=== PATIENT | male | born 1950 | race Caucasian/White ===

== ENCOUNTER → 2016-05-27 | Outpatient (CLI) | payer OTHER ==
[~2016-05-27] VITALS: Ht 185.4 cm; Wt 113.0 kg
[~2016-05-27] MED LIST: ADDERALL 10 MG10 MG PO; ALEVE220 M1 PO; AMBIEN 10 MG TA10 MG PO; ANDROGEL5 GM TD; APAP500 PO; ASPIRIN325 PO; ASPIRIN81 M2 PO; ATORVASTATIN CA80 MG PO; COREG PO; COREG6.25 MG PO; COUMADIN 2.5MG2.5 M1 PO; COUMADIN 5 MG TA5 M1 PO; DEPAKOTE ER250 MG PO; DESYREL50 MG PO; DHEA50 MG PO; FENTANYL PA25 MCG/HR TP; FENTANYL PA50 MCG/HR TP; GLUCOTROL PO; GLUCOTROL5 MG PO; HYDROCODON-ACE1 EAC5 PO; HYDROCODON-ACE1 EAC7 PO; IBUPROFEN 800800 M1 PO; JANUVIA100 MG PO; K-DUR 20 MEQ T20 MEQ PO; LANTUS SUBQ; LASIX 80 MG TAB80 M1 PO; LIPITOR 10 MG10 M1 PO; LIPITOR 40 MG T40 M1 PO; LIPITOR40 MG PO; LISINOPRIL10 MG PO; LISINOPRIL5 MG PO; LOPID600 MG PO; METHADONE HCL 110 M1 PO; METHADONE HCL5 MG PO; MYSOLINE50 MG PO; NORCO 10-325 T1 EACH PO; OXYCODONE-ACET1 EACH PO; PACERONE 200 M200 M1 PO; PERCOCET 5-3251 EACH PO; POTASSIUM PO; PRILOSEC 20 MG20 MG PO; PROPRANOLOL 1010 MG PO; REQUIP3 MG PO; RESTORIL30 MG PO; RISPERDAL 1 MG T1 MG PO; SERTRALINE HCL100 MG PO; SIMVASTATIN80 MG PO; TRAZODONE HCL100 MG; TRAZODONE HCL50 MG PO; WELLBUTRIN SR150 MG PO; XARELTO10 MG PO; XARELTO15 MG PO; ZOLOFT100 MG PO
--- NOTE | ~2016-05-27 | HPC ---
[facility] [place] [address] PAIN MANAGEMENT CONSULTATION Name: MONY CASTILLO Room #: REG Orin MyersBrittanyFrancisco J.#: [id number] Admission: 05/27/16 Attend Phys: Bert Fair MD Discharge: Date of : 46 Report #: [id number] THIS REPORT FOR: //name// CC: Bert BROWN DATE OF SERVICE: 05/27/2016 Followup visit for chronic intractable pain. I am seeing the patient today for the first time since January. He has been in and out of the hospital. He has also been suffering with some gait instability and weakness. He complains of ongoing chronic pain across his low back, above the beltline. It radiates down the right leg in a radicular distribution. He is currently on Coumadin with an elevated INR. He is not a candidate for injection therapy today. MEDICATIONS: Methadone 10 mg b.i.d., hydrocodone 10/325 one tablet q. 8 hours as needed, Coumadin 5 mg daily, trazodone 50 mg daily, carvedilol 6.25 mg, Adderall 10 mg daily, Risperdal 1 mg, lisinopril, glipizide, amiodarone, atorvastatin, Zolpidem, Depakote, Prilosec and Lasix. PHYSICAL EXAMINATION: VITAL SIGNS: BMI is 32.9. Blood pressure is 106/55, heart rate 73 and respirations 16. GENERAL: He looks pale and gaunt. NEUROLOGIC: He is able to move from sitting to standing position, walks with a broad-based gait. Lcorcf-sy-cuw says that he looks much better than he did just weeks ago from when leaving the hospital. He has tenderness across his low back with limited range of motion. Straight leg raising reproduces radicular pain. IMPRESSION: 1. Chronic low back pain with radiculopathy. 2. Posttraumatic stress disorder. 3. Management of high-risk medication. PLAN: We will continue methadone at 10 mg, but we will reduce the dose to once a day or break the tablet and take 5 mg in the morning and evening. We are trying to keep him at the lowest effective dose. Hydrocodone 10/325, we will still provide 1-2 times daily for breakthrough pain. Importance of safeguarding medication under the terms of our opioid agreement established in 1997 was reviewed. This closely follows the CDC guidelines and we are under his CDC guideline 90 mg morphine equivalent dosing. [address] [address] PAIN MANAGEMENT CONSULTATION Name: MONY CASTILLO Room #: REG CLOrin Elba#: [id number] Admission: 05/27/16 Attend Phys: Bert Fair MD Discharge: Date of : 46 Report #: [id number] Followup visit in 3 months. By: [id number] Bert Fair MD /nt
[2016-05-27 14:34] VITALS: BP 106/55
== END | disposition home or self-care (01) ==
LOC: PAIN 04-29 07:27
DX: M54.16 Radiculopathy, lumbar region (principal); G89.29 Other chronic pain; F43.10 Post-traumatic stress disorder, unspecified; F11.20 Opioid dependence, uncomplicated; Z87.891 Personal history of nicotine dependence; Z98.42 Cataract extraction status, left eye; Z98.41 Cataract extraction status, right eye; Z96.1 Presence of intraocular lens

== ENCOUNTER → 2016-08-19 | Outpatient (CLI) | payer OTHER ==
[~2016-08-19] VITALS: Ht 185.4 cm; Wt 109.6 kg
--- NOTE | ~2016-08-19 | HPC ---
[facility] [place] [address] PAIN MANAGEMENT CONSULTATION Name: MONY CASTILLO Room #: REG CARIDAD MyersBrittanyFrancisco JBrittany#: [id number] Admission: 08/19/16 Attend Phys: Bert Fair MD Discharge: Date of : 46 Report #: [id number] THIS REPORT FOR: //name// CC: Bert BROWN DATE OF SERVICE: 08/19/2016 Followup visit for management of chronic intractable pain. The patient looks better today. He has lost a fair amount of weight and kept that off. He is moving better, having undergone physical therapy where they are working on getting up and down out of a chair every day and walking short distances. With this, I think he is improved, both from a cardiovascular standpoint and also from a pain standpoint. ____ his affect seem improved as well. He scores his pain as 6/10 across his low back and into his right leg. He is on a moderately low dose of methadone 10 mg daily, taken once in the morning. ____ [place] 10/325 anywhere from 2-3 tablets a day, I provide him with 75 per month under terms of our opioid agreement. He has been on schedule for all medication. He denies any significant side effects. ____ his , Penny, with him today who his corroboration of how well he is doing with medication. IMPRESSION: 1. Chronic low back pain. 2. Management of high risk medication. 3. Posttraumatic stress disorder. PLAN: I have renewed his methadone 10 mg once daily and hydrocodone 10/325 two to three tablets daily as needed for breakthrough pain under terms of our agreement. He will follow up in 3 months. By: [id number] Bert Fair MD /nt
[2016-08-19 14:23] VITALS: BP 97/50
== END | disposition home or self-care (01) ==
LOC: PAIN 06:58
DX: M54.5 Low back pain (principal); G89.29 Other chronic pain; F11.20 Opioid dependence, uncomplicated; F43.10 Post-traumatic stress disorder, unspecified; Z98.42 Cataract extraction status, left eye; Z98.41 Cataract extraction status, right eye; Z96.1 Presence of intraocular lens; Z87.891 Personal history of nicotine dependence; Z98.890 Other specified postprocedural states; Z88.8 Allergy status to other drugs, medicaments and biological substances; Z79.82 Long term (current) use of aspirin; Z79.899 Other long term (current) drug therapy

== ENCOUNTER → 2016-12-05 | Outpatient (CLI) | payer OTHER ==
[~2016-12-05] VITALS: Ht 182.9 cm; Wt 106.8 kg
[~2016-12-05] MED LIST changes: +LAMICTAL100 MG PO; +METFORMIN HCL500 MG PO; +VITAMIN D1000 UNI1 PO
--- NOTE | ~2016-12-05 | HPC ---
[facility] [place] [address] PAIN MANAGEMENT CONSULTATION Name: MONY CASTILLO Room #: REG CARIDAD Elba#: [id number] Admission: 12/05/16 Attend Phys: Bert Fair MD Discharge: Date of : 46 Report #: [id number] THIS REPORT FOR: //name// CC: Bert BROWN DATE OF SERVICE: 12/05/2016 REASON FOR VISIT: Followup visit for chronic pain. The patient is here today to discuss his ongoing back pain. He has back pain in the low back across the lumbosacral segment, radiates down into the right lower extremity. He is having worsening of his foot drop, suggesting L5 neural compression. We have previously treated him with intermittent epidural injections, which provided some relief. We discussed that briefly today. He has a number of issues including history of coronary artery disease and has stents. He has a biventricular pacemaker. He has congestive heart failure. He suffers also from diverticulitis and diffuse osteoarthritis. He has dealt with longstanding PTSD, which is documented in this record. He is insulin-dependent diabetic. Steroid injections have worsened his diabetes at times. He has cholecystectomy scheduled for Friday due to right upper abdominal quadrant pain and he has cholelithiasis that have been identified with ultrasound. He is feeling generally weak and is worried about his surgery. PHYSICAL EXAMINATION: He is 6 feet tall, 235 pounds. Blood pressure is 86/58, which is typical for him. Heart rate is 95. Pain score is 8. He is able to easily move from sitting to standing position, but complains of pain on ambulation. He has weakness in his right lower extremity which also shows an evident right foot drop. IMPRESSION: 1. Chronic intractable pain, low back pain with radiculopathy. 2. Post-traumatic stress disorder. 3. Coronary artery disease. 4. Insulin-dependent diabetes. 5. Management of high risk medication. PLAN: I renewed his medication under terms of our agreement. He is on methadone 10 mg t.i.d. and hydrocodone 10/325 one to three tablets daily for breakthrough pain. If we calculate morphine at 4 mg to 1 mg of morphine, then he is above the CDC guidelines. He is doing well without significant side effects and this medication has made a big difference in allowing him to be reasonably functional. I am going to go ahead and continue him with this dose, but will monitor him closely. Multiple drug screens have been performed. The [address] [address] PAIN MANAGEMENT CONSULTATION Name: MONY CASTILLO Room #: REG CLI JonnathanBrittany#: [id number] Admission: 12/05/16 Attend Phys: Bert Fair MD Discharge: Date of : 46 Report #: [id number] CDC guidelines were reviewed today with the patient and his before discharge. Total time spent with the patient 25 minutes. By: 1228 10 Bert Fair MD /lidia
[2016-12-05 13:11] VITALS: BP 86/58
== END | disposition home or self-care (01) ==
LOC: PAIN 11-21 11:39
DX: M54.16 Radiculopathy, lumbar region (principal); G89.29 Other chronic pain; E11.9 Type 2 diabetes mellitus without complications; I25.10 Atherosclerotic heart disease of native coronary artery without angina pectoris; I50.9 Heart failure, unspecified; F43.10 Post-traumatic stress disorder, unspecified; M19.90 Unspecified osteoarthritis, unspecified site; Z79.4 Long term (current) use of insulin; Z79.891 Long term (current) use of opiate analgesic; Z95.0 Presence of cardiac pacemaker; Z79.01 Long term (current) use of anticoagulants; Z98.41 Cataract extraction status, right eye; Z98.42 Cataract extraction status, left eye; Z87.891 Personal history of nicotine dependence; Z88.8 Allergy status to other drugs, medicaments and biological substances; Z88.6 Allergy status to analgesic agent; Z79.82 Long term (current) use of aspirin; Z79.899 Other long term (current) drug therapy

== ENCOUNTER → 2017-03-10 | Outpatient (CLI) | payer OTHER ==
[~2017-03-10] VITALS: Ht 182.9 cm; Wt 113.9 kg
--- NOTE | ~2017-03-10 | HPC ---
[facility] [place] [address] PAIN MANAGEMENT CONSULTATION Name: MONY CASTILLO Room #: REG Orin Jonnathan.#: [id number] Admission: 03/10/17 Attend Phys: Julian Serra, DO Discharge: Date of : 46 Report #: [id number] THIS REPORT FOR: //name// CC: DELMER Serra The patient is a 66-year-old gentleman, typically treated by Dr. Bert Fair for ongoing axial back pain, lumbar radiculopathy, history of posttraumatic stress disorder, comorbidities include coronary artery disease and insulin-dependent diabetes. He was last seen in the pain clinic 12/05/2016, continued on baseline medications including methadone 10 mg 1 per day, hydrocodone 10/325 one tablet 2-3 times a day. This equates to roughly 65 mEq of morphine daily. The patient returns to pain clinic today noting medications generally provide sufficient analgesia to participate in the activities of daily living, rates the pain about 6 on a VAS. Describes of chronic intermittent pain primarily back, right buttock, and leg to the knee. The patient states he does exercises daily. He does a sit to stand from a chair without using his arms 25 times once or twice a day. He states he walks fairly regularly about 3-5 minutes throughout the day. He had been more active when the weather was warmer. He tells me his blood sugar is under adequate control, last hemoglobin A1c was 6.3. PHYSICAL EXAMINATION: Shows a 66-year-old gentleman, BMI is 34 kg/m2. Vital signs are stable as noted in the EMR. He has a little bit of twitching in his right upper extremity (nervous Tic?). Rises from the chair, has a mildly ataxic gait. Tender over the right SI. Positive straight leg raise on the right side. Lower extremity strength is diminished on the right to all muscle groups tested about 3/5 versus 4/5 on the left. Incidentally noted, he has a trigger ring finger on the right hand. He is otherwise alert and oriented, judged to be a reasonable historian. Again, comorbidities include insulin-dependent diabetes and coronary artery disease, history of CO with multiple stents and a biventricular pacer, history of CHF. We reviewed the fact that opiate medications are being used to provide analgesia adequate to support activities of daily living, not attempting to achieve a specific pain score on the 0-10 Visual Analog Scale. The current opiate medications are providing sufficient analgesia to allow the patient to participate in activities of daily living. The patient is not exhibiting any aberrant behavior suggestive of drug diversion. The patient is not having any adverse reactions to medications. The patient is not suffering from daytime somnolence or mental acuity changes. The patient is managing opiate-induced constipation with appropriate vspw-xmi[place] [address] PAIN MANAGEMENT CONSULTATION Name: ANNAMONYKAILA FOOTE Room #: REG CARIDAD Arreola#: [id number] Admission: 03/10/17 Attend Phys: Julian Serra DO Discharge: Date of : 46 Report #: [id number] considerations. The patient was counseled on concern for caution with operating a motor vehicle while using opiate medications. A physical exam was performed and the patient's functional status was evaluated. All patients with back pain were advised against the bed rest greater than 4 days and were advised to return to normal activities. Pain score assessment was noted and the treatment plan was reviewed with the patient. All current medications, both prescribed and OTC were reviewed and reconciled on the electronic medical record. Tobacco screening was accomplished and smoking cessation was advised when indicated. BMI was noted and diet/exercise modification was recommended for all patients following outside normal parameters. I reviewed with the patient today their responsibilities to safeguard prescription medications, reviewed their responsibility to utilize medications only as prescribed by the physician. They are to seek and receive pain medications only from 1 physician group ( [facility]). They are to use 1 pharmacy and keep the clinic informed if they change pharmacies. Their responsibilities include making followup visits in a timely fashion and to avoid abrupt discontinuation of medication usage. Their responsibilities further include bringing their medications (bottles from the pharmacy with residual pills) to the visit for possible confirmation of pill counts and the patient understands it is their responsibility to submit to random drug screens to ensure both that the medications prescribed are present, and that no other controlled substances are present. All prescriptions provided today were generated electronically. ASSESSMENT: 1. Symptomatic lumbar radiculopathy, axial back pain in a gentleman requiring high risk complex medication management well under the CDC recommended standards at roughly 65 morphine equivalence a day (10 mg of methadone once daily equating to about 40 mg of morphine, averaging 2-1/2 hydrocodone 10/325 tablets a day for another 25 mEq of morphine). The patient was decreased from methadone 10 mg b.i.d. to once a day back in July 2015, and has been stable on that since. On reviewing the chart, it appears that there has not been an opiate screen in the past year, we did take the liberty of getting a buccal swab today. It should be positive for morphine and hydrocodone. 2. Symptomatic lumbar radiculopathy, axial back pain requiring high risk complex medication management, comorbidities include posttraumatic stress disorder, coronary artery disease, and insulin-dependent diabetes. RECOMMENDATION: Continue baseline medication unchanged, methadone 10 mg once a day, hydrocodone 10/325, limit 75 tablets for 30 days. I have taken the liberty of writing for 3 months of current medication. [facility] [address] [place] [address] PAIN MANAGEMENT CONSULTATION Name: MONY CASITLLO QAMAR Room #: REG CLI Jonnathan.#: [id number] Admission: 03/10/17 Attend Phys: Julian Serra DO Discharge: Date of : 46 Report #: [id number] I spent approximately 25 minutes with the patient and his today reviewing medical record, physical exam, current medical concerns. The patient was discharged in good and stable condition. <ELECTRONICALLY SIGNED> By: Julian Serra DO 03/12/17 0816 1541 1857 Julian Serra DO /nt
[2017-03-10 12:43] VITALS: BP 116/69
== END ==
LOC: PAIN 03-06 13:27
DX: M54.16 Radiculopathy, lumbar region (principal); I25.10 Atherosclerotic heart disease of native coronary artery without angina pectoris; E11.9 Type 2 diabetes mellitus without complications

== ENCOUNTER → 2017-09-29 | Outpatient (CLI) | payer OTHER ==
[~2017-09-29] VITALS: Ht 182.9 cm; Wt 108.3 kg
--- NOTE | ~2017-09-29 | HPC ---
[facility] [address] [address] PAIN MANAGEMENT CONSULTATION Name: MONY CASTILLO Room #: REG Orin Jonnathan.#: [id number] Admission: 09/29/17 Attend Phys: Bert Fair MD Discharge: Date of : 46 Report #: [id number] THIS REPORT FOR: //name// CC: Physician staff Bert BROWN DATE OF SERVICE: 09/29/2017 SUBJECTIVE: Followup visit for management of high risk medications for intractable pain. The patient returns to pain clinic today in followup for back pain with radiculopathy. He is doing better. We have tapered his medicines somewhat. He is complaining once again of pain mostly in the low back, but also radiating pain behind the right knee, which is a constant complaint. Pain score is an 8/10. This is fairly consistent number, although his activities would delay that. He and his are planning a trip possibly to [place] later in the fall, so he is getting out and doing some things important, part of pain management, of course is activity driven. Without medication, both his and the patient report that he would be much more limited in the house. He is able to get out, go to the store and do other things. Does not appear to be a fall risk. He needs to be cautious. He is on Coumadin. No history of hypertension. His opioid agreement has been signed and reviewed recently. A buccal drug screen was performed on 03/12/2017 was appropriate for all medications provided through our clinic. He struggles with some osteoarthritis of the major joints, but overall is doing okay. Other comorbidities include coronary artery disease, congestive heart failure, insulin-dependent diabetes and post-laminectomy with fusion syndrome. IMPRESSION: 1. Chronic low back pain with radiculopathy. 2. Posttraumatic stress disorder described elsewhere throughout this record. 3. Coronary artery disease. 4. Insulin-dependent diabetes. 5. Management of high risk medications under terms of written opioid agreement. Medications were renewed with precautions about safeguarding. Current daily dose is methadone 10 mg once daily, [place] 10/325 2-3 times daily for breakthrough pain with a total of 75 tablets allowed per month. [facility] [address] [place] [address] PAIN MANAGEMENT CONSULTATION Name: ANNAMONY QAMAR Room #: REG CL Elba#: [id number] Admission: 09/29/17 Attend Phys: Bert Fair MD Discharge: Date of : 46 Report #: [id number] Followup visit planned in 3 months. By: [id number] Bret Fair MD /nt
[2017-09-29 14:31] VITALS: BP 95/65
== END ==
LOC: PAIN 06:57
DX: M54.16 Radiculopathy, lumbar region (principal); I25.10 Atherosclerotic heart disease of native coronary artery without angina pectoris; E11.9 Type 2 diabetes mellitus without complications; G89.4 Chronic pain syndrome; Z79.891 Long term (current) use of opiate analgesic; Z79.899 Other long term (current) drug therapy

== ENCOUNTER → 2017-12-29 | Outpatient (CLI) | payer OTHER ==
[~2017-12-29] VITALS: Ht 182.9 cm; Wt 104.3 kg
--- NOTE | ~2017-12-29 | HPC ---
[facility] [place] [address] PAIN MANAGEMENT CONSULTATION Name: ANNAMONY QAMAR Room #: REG Orin Arreola#: [id number] Admission: 12/29/17 Attend Phys: Danielle Kenney Discharge: Date of : 46 Report #: [id number] THIS REPORT FOR: //name// CC: Danielle Kenney Physician staff DELMER BROWN DATE OF SERVICE: 12/29/2017 CHIEF COMPLAINT: The patient comes today for follow up for his pain management for his back pain with radiculopathy. HISTORY OF PRESENT ILLNESS: The patient returns today for followup for his back pain. He is in a wheelchair today and he tells us that he has had 2 falls, first one being on 11/09/2017, had a subarachnoid bleed because the patient is on Coumadin and then went back on 12/12/[address] and noticed at that time, he had a subdural hematoma and mini stroke. The patient is no longer on Coumadin, has been doing home PT and home OT. He was at the hospital for at least a week in [place]. He tells me during his first fall he also hurt his left shoulder and that continues to be bothersome as well as the lower back. He did have a headache up until about a week ago and finally that has resolved. The patient tells me that he had had some word searching after his mini stroke, but that has slowly been getting better. He complains of pain of 6/10 today. Does have some weakness in his lower extremities and is wearing a gait belt. He tells me that the medication that he takes is very helpful as well as sitting. He tells me he has been taking hydrocodone up to 3 times a day and has methadone 10 mg once a day. ALLERGIES: LATUDA, MOBIC, OXYCODONE. CURRENT LIST OF MEDICATIONS: Methadone 10 mg once a day, hydrocodone 10/325 2-3 times a day, Glucophage 500 mg twice a day, vitamin D daily, Lamictal 100 mg a day, potassium 40 mEq daily, Coreg 6.25 twice a day, Risperdal 1 mg a day, lisinopril 5 mg daily, atorvastatin 80 mg at bedtime, Ambien at bedtime, Depakote 500 at bedtime, Prilosec twice a day, Lasix 80 mg once a day. PQRS: 1. History of osteoarthritis in his back and his knees and denies rheumatoid arthritis. 2. Height is 6 feet 0, weight is 230 pounds. BMI is 31.2. 3. Vital signs: Blood pressure 98/59, pulse of 71, respirations 14, oxygen level is 97%. Pain score is 6/10. 4. Fall risk: Does dizziness, but he has fallen in the last 3 months and does need help walking and standing. Wearing a gait belt today. 5. The patient is not on any blood thinners. 6. Does have a [place] [address] PAIN MANAGEMENT CONSULTATION Name: MONY CASTILLO Room #: REG CARIDAD Arreola#: [id number] Admission: 12/29/17 Attend Phys: Danielle Kenney Discharge: Date of : 46 Report #: [id number] 7. History of opioid therapy is greater than 6 weeks with a signed opioid contract on the chart. 8. Risk assessment tool is low. Functional assessment is 43/70. 9. Recreational drug use, he denies. He is a former smoker and does not drink any alcohol. There is no [place] or [place] drug monitoring system on the chart. [place] does not voluntarily report medications to these systems. PHYSICAL EXAMINATION: GENERAL: Affect is flat, but pleasant today. HEENT: Reveals dentures. Mucous membranes are moist. Pupils are small, but reactive to light. EXTREMITIES: Decreased weakness in his lower extremities. Pain with raising his legs. He is wearing a gait belt today to help with balance. ASSESSMENT: 1. Chronic low back pain with radiculopathy, status post stress disorder. 2. Coronary artery disease. 3. Diabetic. 4. Subarachnoid and subdural hematomas. 5. Stroke. We reviewed the fact that opiate medications are being used to provide analgesia adequate to support activities of daily living, not attempting to achieve a specific pain score on the 0-10 Visual Analog Scale. The current opiate medications are providing sufficient analgesia to allow the patient to participate in activities of daily living. The patient is not exhibiting any aberrant behavior suggestive of drug diversion. The patient is not having any adverse reactions to medications. The patient is not suffering from daytime somnolence or mental acuity changes. The patient is managing opiate-induced constipation with appropriate coxd-ihw-accvqdf agents and dietary considerations. The patient was counseled on concern for caution with operating a motor vehicle while using opiate medications. A physical exam was performed and the patient's functional status was evaluated. All patients with back pain were advised against the bed rest greater than 4 days and were advised to return to normal activities. Pain score assessment was noted and the treatment plan was reviewed with the patient. All current medications, both prescribed and OTC were reviewed and reconciled on the electronic medical record. Tobacco screening was accomplished and smoking cessation was advised when indicated. BMI was noted and diet/exercise modification was recommended for all patients following outside normal parameters. I reviewed with the patient today their responsibilities to safeguard [facility] [address] [place] [address] PAIN MANAGEMENT CONSULTATION Name: MONY CASTILLO Room #: REG VIJIOrin Arreola#: [id number] Admission: 12/29/17 Attend Phys: Danielle Kenney Discharge: Date of : 46 Report #: [id number] prescription medications, reviewed their responsibility to utilize medications only as prescribed by the physician. They are to seek and receive pain medications only from 1 physician group ( [facility]). They are to use 1 pharmacy and keep the clinic informed if they change pharmacies. Their responsibilities include making followup visits in a timely fashion and to avoid abrupt discontinuation of medication usage. Their responsibilities further include bringing their medications (bottles from the pharmacy with residual pills) to the visit for possible confirmation of pill counts and the patient understands it is their responsibility to submit to random drug screens to ensure both that the medications prescribed are present, and that no other controlled substances are present. All prescriptions provided today were generated electronically. PLAN: 1. The patient returns today for refill of his medication management. The patient tells me that he has had several falls and a stroke since his last visit. He has been in the hospital and now doing physical therapy and occupational therapy at home. He is requesting a refill of his hydrocodone 3 times a day and his methadone. 2. I discussed the treatment with the patient. I told him that I was not willing to increase his hydrocodone to 3 tablets every day. He needs to try to go back to 2 tablets most days with occasionally taking the third dose with the quantity of 75 for the month as he previously was. The patient tells me that he thinks he probably is doing that more so than 3 times a day. The patient is agreeable with this. 3. Script given for methadone 10 mg 1 p.o. every day, quantity 30 for today, 4-week and 8-week fills and hydrocodone 10/325, #75 for today, 4-week and 8-week. The patient is agreeable with this plan of care. We will see him in followup in 3 months' time frame. The patient was seen today in collaboration with Dr. Bert Fair. <ELECTRONICALLY SIGNED> By: Danielle Kenney 12/30/17 0712 1451 0035 Danielle Kenney /nt
[2017-12-29 13:39] VITALS: BP 98/59
== END ==
LOC: PAIN 06:58
DX: S06.5X0A Traumatic subdural hemorrhage without loss of consciousness, initial encounter (principal); M54.16 Radiculopathy, lumbar region; E11.9 Type 2 diabetes mellitus without complications; I25.10 Atherosclerotic heart disease of native coronary artery without angina pectoris; F43.12 Post-traumatic stress disorder, chronic; G89.29 Other chronic pain; X58.XXXA Exposure to other specified factors, initial encounter; Y93.89 Activity, other specified; Y92.89 Other specified places as the place of occurrence of the external cause; Y99.8 Other external cause status

== ENCOUNTER → 2018-03-30 | Outpatient (CLI) | payer OTHER ==
[~2018-03-30] VITALS: Ht 188 cm; Wt 117.0 kg
[~2018-03-30] MED LIST changes: +COUMADIN 1MG TAB1 M1 PO; +DEPAKOTE ER500 MG PO; +GLIPIZIDE ER2.5 MG PO
[2018-03-30 12:40] VITALS: BP 128/79
--- NOTE | 2018-03-30 12:45 | NUR ---
Pain Clinic Assessment: 1. History of Osteoarthritis: BACK KNEES History of Rheumatoid Arthritis: NO 2. Height: 6 ft. 2 in. 188.0 cm. Weight: 258.0 lb. oz. 117.028 kg. Patient's BMI: 33.1 3. Vital Signs: BP: 128/79 Pulse: 91 Resp: 16 Temp: 02 Sat: 97 ECG Mon: 4. Pain Intensity: 7-8 5. Fall Risk: Dizziness: N Needs help standing or walking: N Fallen in the last 3 months: Y Fall risk comments: 6. Patient on Blood Thinner: None 7. History of Hypertension: N 8. Opioid Therapy greater than 6 weeks: Y Opiate Contract Signed: 11/09/15 9. Risk Assessment Tool Provided: 3-LOW RISK 10. Functional Assessment Tool: 11. Recreational Drug Use: Never Drug Type: Tobacco Use: Former Smoker Tobacco Type: Amount or Packs/day: How Many Years: Alcohol Use: No Frequency: Quant:
--- NOTE | 2018-03-31 09:01 | HPC ---
[facility] [address] [place] [address] PAIN MANAGEMENT CONSULTATION Name: MONY CASTILLO Room #: REG CL Elba#: [id number] Admission: 03/30/18 Attend Phys: Danielle Kenney Discharge: Date of : 46 Report #: [id number] THIS REPORT FOR: //name// CC: Danielle Kenney Physician staff DELMER BROWN DATE OF SERVICE: 03/30/2018 CHIEF COMPLAINT: Low back pain with radiculopathy. HISTORY OF PRESENT ILLNESS: The patient returns to the pain clinic today for his ongoing back pain. He has walked in today using a cane. He tells me that he has been doing home health therapy, physical therapy since his recent falls trying to build his stability. He does tell me he does use a walker if he has to go too far. Otherwise, he uses a 3-prong cane for balance purposes. He tells me today most of his pain is in his low back and right knee, rating it as pain score of 7-8. He tells me that his pain has been getting worse or staying around 7-8 on a consistent basis and was wondering if we could increase his hydrocodone from 75 pills a month to 90 pills a month. The patient tells me he does not have any problems with constipation or daytime sleepiness. ALLERGIES: LATUDA, MELOXICAM, OXYCODONE. CURRENT LIST OF MEDICATIONS: Glipizide 2.5 mg daily, Depakote 1000 mg at bedtime, Coumadin 1 mg daily, methadone 10 mg daily, hydrocodone 2-3 tabs a day, metformin 500 mg b.i.d., vitamin D 100,000 units weekly, Lamictal 100 mg daily, potassium 40 mEq daily, carvedilol 6.25 mg twice a day, Zestril 2.5 mg daily, atorvastatin 80 mg at bedtime, omeprazole 20 mg b.i.d., and Lasix 80 mg daily. PQRS: 1. He has history of osteoarthritis in his back, knees and denies rheumatoid arthritis. 2. Height is 6 feet 2 inches, his weight is 258. His BMI is 33.1. 3. Vital signs: 128/79, pulse is 91, respirations 16, oxygen sat is 97%. Pain score is 7-8. 4. Fall risk: Denies dizziness, uses cane for walking or a walker and has not fallen in the past 3 months. The patient is on Coumadin. He also has a history of hypertension. 5. Opioid therapy is greater than 6 weeks, therefore an opioid signed contract is on the chart. His risk assessment tool is low. His functional assessment is 43/70. 6. Recreational drug use, he denies. He is a former smoker and does not drink alcohol. We did check the prescription monitoring system, but his county does not report findings. He had a recent drug screen today since his past one was a year old. [address] [address] PAIN MANAGEMENT CONSULTATION Name: MONY CASTILLO Room #: REG CARIDAD Arreola#: [id number] Admission: 03/30/18 Attend Phys: Danielel Kenney Discharge: Date of : 46 Report #: [id number] PHYSICAL EXAMINATION: GENERAL: This is an alert and oriented 67-year-old gentleman who appears his stated age. His affect is flat, but pleasant today. HEENT: Reveals dentures. Mucous membranes are moist. Pupils are small, but reactive to light. EXTREMITIES: Decreased weakness in his lower extremities. Strength judged to be 4/5 bilaterally. He is using a 3-prong walker today. The patient does complain of low back tenderness. ASSESSMENT: 1. Chronic low back pain with radiculopathy. 2. Coronary artery disease. 3. Diabetes. 4. Subarachnoid and subdural hematomas. 5. Stroke. We reviewed the fact that opiate medications are being used to provide analgesia adequate to support activities of daily living, not attempting to achieve a specific pain score on the 0-10 Visual Analog Scale. The current opiate medications are providing sufficient analgesia to allow the patient to participate in activities of daily living. The patient is not exhibiting any aberrant behavior suggestive of drug diversion. The patient is not having any adverse reactions to medications. The patient is not suffering from daytime somnolence or mental acuity changes. The patient is managing opiate-induced constipation with appropriate rcqd-xnb-bearrvh agents and dietary considerations. The patient was counseled on concern for caution with operating a motor vehicle while using opiate medications. A physical exam was performed and the patient's functional status was evaluated. All patients with back pain were advised against the bed rest greater than 4 days and were advised to return to normal activities. Pain score assessment was noted and the treatment plan was reviewed with the patient. All current medications, both prescribed and OTC were reviewed and reconciled on the electronic medical record. Tobacco screening was accomplished and smoking cessation was advised when indicated. BMI was noted and diet/exercise modification was recommended for all patients following outside normal parameters. I reviewed with the patient today their responsibilities to safeguard prescription medications, reviewed their responsibility to utilize medications only as prescribed by the physician. They are to seek and receive pain medications only from 1 physician group ([facility]). They are to use 1 pharmacy and keep the clinic informed if they change pharmacies. Their responsibilities include making followup visits in a timely fashion and to avoid abrupt discontinuation of medication usage. Their responsibilities further [facility] [address] [place] [address] PAIN MANAGEMENT CONSULTATION Name: MONY CASTILLO Room #: REG VIJIOrin Arreola#: [id number] Admission: 03/30/18 Attend Phys: Danielle JAY JAY Kenney Discharge: Date of : 46 Report #: [id number] include bringing their medications (bottles from the pharmacy with residual pills) to the visit for possible confirmation of pill counts and the patient understands it is their responsibility to submit to random drug screens to ensure both that the medications prescribed are present, and that no other controlled substances are present. All prescriptions provided today were generated electronically. PLAN: 1. We discussed treatment options with the patient today, he tells me that his pain is averaging only 7-8 every day, is requesting to increase his hydrocodone from 10/325 two a day with occasionally 3 times a day. He would continue his methadone as he was previously taking at once a day. The patient believes this will help him more be able to do his therapy, which he has been doing at home in the afternoons. 2. I discussed this with Dr. Bert Fair and he is agreeable to have the patient take 3 tablets a day of his hydrocodone. Scripts given today of 10/325, #90, to release today, 4 weeks and 8 weeks. Second script of methadone 10 mg 1 p.o. every day, #30, was given for release of today, 4 weeks and 8 weeks. 3. The patient MME still falls at the amount of 70 MME per day according to the CDC guidelines, I did discuss this with the patient today. The patient feels that this will help him by increasing his hydrocodone still stay under the guidelines but helping him be more active with his therapy. 4. We did obtain a buccal drug swab today since it had been a year since his last drug screen. The patient tells me that he took his hydrocodone yesterday, his last one, and his last methadone was on Friday as well. The patient seen today in collaboration with Dr. Bert Fair. <ELECTRONICALLY SIGNED> By: Danielle Kenney 03/31/18 0901 1351 20 Danielle Kenney /nt
== END ==
LOC: PAIN 03-23 13:36
DX: M54.16 Radiculopathy, lumbar region (principal); I25.10 Atherosclerotic heart disease of native coronary artery without angina pectoris; E11.9 Type 2 diabetes mellitus without complications; I63.9 Cerebral infarction, unspecified; I62.00 Nontraumatic subdural hemorrhage, unspecified; I60.9 Nontraumatic subarachnoid hemorrhage, unspecified; Z79.899 Other long term (current) drug therapy

== ENCOUNTER → 2018-06-25 | Outpatient (CLI) | payer OTHER ==
[~2018-06-25] VITALS: Ht 182.9 cm; Wt 120.3 kg
[~2018-06-25] MED LIST changes: +COUMADIN 2 MG TA2 M1 PO
--- NOTE | ~2018-06-25 | HPC ---
[facility] [place] [address] PAIN MANAGEMENT CONSULTATION Name: MONY CASTILLO Room #: REG CARIDAD Jonnathan.#: [id number] Admission: 06/25/18 ������������������ Attend Phys: Bert Fair MD Discharge: ������������������ Date of : 46 Report #: [id number] THIS REPORT FOR: //name// CC: Physician staff Edenilson Early DATE OF SERVICE: 06/25/2018 CHIEF COMPLAINT: Followup visit for management of high risk medications in the treatment of chronic intractable low back pain with radiculopathy. This is a followup visit for patient who is on longstanding opioid medications under terms of written opioid agreement for treatment of intractable pain. Record reflects that we have had him on some medication for pain in the opioid class dating back to before 2009. He remains grateful for the medication. It provides relief of pain and he has relatively few side effects from the medication. He carefully safeguards his medication. With it, he is able to do much more as far as day-to-day activity. He has suffered from a subarachnoid bleed, subdural bleed and has had a stroke in separate instances since November of last year. When discussing recovery with patient and his , they both agree that he has made a good recovery, although he admits to some memory issues. Today, he is conversant and we tested his memory with some discussions about the distant more recent past. He does not appear to have any additional deficits in my short visit. He does appear to be a little slower perhaps in his speech patterns in conversation. In March, he had been doing home health physical therapy and had been making some progress. He would still be considered a fall risk and uses a cane. PQRS REVIEW: In addition to his fall risk, it should be noted that he has significant osteoarthritis including spondylosis and bilateral knee pain and arthritis. He is obese with a BMI of 36.0. Pain intensity 7-8/10 on an average day, improved by medication. He is on Coumadin chronically, but is not treated currently for hypertension. He has an opioid agreement and his risk assessment tool score is 3. SOCIAL HISTORY: He denies use of tobacco or alcohol. PHYSICAL EXAMINATION: Blood pressure is 106/62, heart rate 83, respirations 14. He is 6 feet tall, 265, BMI of 36.0. He can move independently from sitting to standing position. His gait is antalgic. He uses a cane for support. Weakness [facility] [address] [place] [address] PAIN MANAGEMENT CONSULTATION Name: MONY CASTILLO Room #: REG CLOrin De SantiagoBrittany#: [id number] Admission: 06/25/18 ������������������ Attend Phys: Bert Fair MD Discharge: ������������������ Date of : 46 Report #: [id number] in lower extremities is noted in a generalized fashion. IMPRESSION: 1. Chronic low back pain with radiculopathy. 2. Coronary artery disease. He is on warfarin. 3. Type 2 diabetes. 4. History of subarachnoid bleed as well as subdural hematoma and cerebrovascular accident. 5. Management of opioid medication under terms of written agreement. PLAN: I renewed his medications for him. We kept him at the same daily dose of methadone, but divided it at 5 mg morning and evening. He had been taking it once a day in the morning and I think he will do better if he takes one dose at bedtime. He was also given a renewal of his hydrocodone which he takes as a co-analgesic more than a breakthrough. The methadone and hydrocodone combination has been effective for him and he carefully safeguards his medication per terms of his agreement. Followup visit scheduled in 3 months. ��������������������������������������������� ���������������������������������������� By: ��������������������������������������������� 1625 0857 Bert Fair MD /nt
[2018-06-25 15:02] VITALS: BP 106/62
--- NOTE | 2018-06-25 15:14 | NUR ---
Pain Clinic Assessment: 1. History of Osteoarthritis: BACK KNEES History of Rheumatoid Arthritis: NO 2. Height: 6 ft. 0 in. 182.9 cm. Weight: 265.2 lb. oz. 120.294 kg. Patient's BMI: 36.0 3. Vital Signs: BP: 106/62 Pulse: 83 Resp: 14 Temp: 02 Sat: 97 ECG Mon: 4. Pain Intensity: 7-8 5. Fall Risk: Dizziness: N Needs help standing or walking: Y Fallen in the last 3 months: N Fall risk comments: 6. Patient on Blood Thinner: Warfarin (Coumadin) 7. History of Hypertension: N 8. Opioid Therapy greater than 6 weeks: Y Opiate Contract Signed: 11/09/15 9. Risk Assessment Tool Provided: 3-LOW RISK 10. Functional Assessment Tool: 11. Recreational Drug Use: Never Drug Type: Tobacco Use: Former Smoker Tobacco Type: Amount or Packs/day: How Many Years: Alcohol Use: No Frequency: Quant:
== END ==
LOC: PAIN 07:03
DX: M54.16 Radiculopathy, lumbar region (principal); G89.4 Chronic pain syndrome; I25.10 Atherosclerotic heart disease of native coronary artery without angina pectoris; E11.9 Type 2 diabetes mellitus without complications; Z79.01 Long term (current) use of anticoagulants; Z79.891 Long term (current) use of opiate analgesic; Z86.73 Personal history of transient ischemic attack (TIA), and cerebral infarction without residual deficits; Z86.79 Personal history of other diseases of the circulatory system; Z79.899 Other long term (current) drug therapy

== ENCOUNTER → 2018-09-17 | Outpatient (CLI) | payer OTHER ==
[~2018-09-17] VITALS: Ht 182.9 cm; Wt 118.3 kg
[2018-09-17 14:10] VITALS: BP 122/68
--- NOTE | 2018-09-17 14:33 | NUR ---
Pain Clinic Assessment: 1. History of Osteoarthritis: BACK KNEES History of Rheumatoid Arthritis: NO 2. Height: 6 ft. 0 in. 182.9 cm. Weight: 260.8 lb. oz. 118.298 kg. Patient's BMI: 35.4 3. Vital Signs: BP: 122/68 Pulse: 66 Resp: 16 Temp: 02 Sat: 98 ECG Mon: 4. Pain Intensity: 7 CONSTANT 5. Fall Risk: Dizziness: N Needs help standing or walking: Y Fallen in the last 3 months: Y Fall risk comments: 6. Patient on Blood Thinner: Warfarin (Coumadin) 7. History of Hypertension: N 8. Opioid Therapy greater than 6 weeks: Y Opiate Contract Signed: 11/09/15 9. Risk Assessment Tool Provided: 3-LOW RISK 10. Functional Assessment Tool: 11. Recreational Drug Use: Never Drug Type: Tobacco Use: Former Smoker Tobacco Type: Amount or Packs/day: How Many Years: Alcohol Use: No Frequency: Quant:
--- NOTE | 2018-09-18 07:16 | HPC ---
[facility] [address] [address] PAIN MANAGEMENT CONSULTATION Name: MONY CASTILLO Room #: REG [facility] Elba#: [id number] Admission: 09/17/18 ������������������ Attend Phys: Danielle Kenney Discharge: ������������������ Date of : 46 Report #: [id number] THIS REPORT FOR: //name// CC: Danielle BROWN DATE OF SERVICE: 09/17/2018 CHIEF COMPLAINT: Chronic intractable low back pain with radiculopathy. HISTORY OF PRESENT ILLNESS: This is a 67-year-old gentleman who returns to the pain clinic today for refill of his medications that he uses to help treat his intractable back pain. He has been on this medication for some time. At the last visit, Dr. Fair did change his methadone from once a day at bedtime to divided the dose to twice a day. The patient finds this is very beneficial; it has been helping him control his pain better. He feels that it is more evenly controlled throughout the day despite reporting a pain score of 7/10 today. He does use his hydrocodone as well and feels that this is beneficial. The patient tells me he has finished his physical and occupational therapy. He does occasionally do his exercises at home, that he feels that he is active and using a cane for walking now. The patient does complain of problems sleeping. He tells me he has a psych doctor that he is going to talk about at a visit next month with her. He tells me in the past, he was on Wellbutrin and he felt that his mental health and sleeping was much better controlled when he was taking Wellbutrin. He is unsure if they will let him take that, but he is going to ask them to see if that would be beneficial for him. ALLERGIES: LATUDA, MELOXICAM, OXYCODONE. CURRENT LIST OF MEDICATIONS: Methadone 5 mg b.i.d., hydrocodone 10/325 three times a day, Coumadin 2.5 mg alternating with 5 mg, glipizide 2.5 mg daily, Depakote ER 500 mg at bedtime, metformin 500 mg b.i.d., vitamin D, Lamictal 100 mg daily, potassium 40 mEq daily, Coreg 6.25 mg b.i.d., Zestril 2.5 mg daily, atorvastatin 80 mg at bedtime, Prilosec 20 mg b.i.d. and Lasix 80 mg daily. PQRS: 1. The patient has osteoarthritic changes in his back and knees. Denies any rheumatoid arthritis. 2. Height is 6 feet, weight is 260, and BMI is 35. 3. Vital signs: Blood pressure 122/68, pulse is 66, respirations 16, oxygen sat is 98. [facility] [address] [place] [address] PAIN MANAGEMENT CONSULTATION Name: MONY CASTILLO Room #: REG [facility] Elba#: [id number] Admission: 09/17/18 ������������������ Attend Phys: Danielle Kenney Discharge: ������������������ Date of : 46 Report #: [id number] 4. Pain score 7/10. 5. Fall risk: Denies dizziness. Does use a cane for walking, has fallen in the last 3 months. 6. The patient is on Coumadin. He is not on medicines for hypertension. 7. Opioid therapy is greater than 6 weeks; therefore, an opioid signed contract is on the chart. Risk assessment tool is low. Functional assessment is 52/70. 8. Recreational drug use: He denies. He is a former smoker and does not drink alcohol. We did check the prescription monitoring system. The patient is filling appropriately and he has a recent drug screen on the chart that is appropriate for his medications. PHYSICAL EXAMINATION: GENERAL: This is a 67-year-old gentleman who is alert and orientated, appears his stated age. He has a flat affect, but pleasant today. HEENT: Reveals dentures. Mucous membranes are moist. Pupils are small, but reactive to light. He has a bruise under his ecchymosis area underneath his left eye. MUSCULOSKELETAL: He moves independently from the sitting to standing position. His gait is antalgic and he does use a cane for support. He has lower extremity weakness from generalized deconditioning in his lower extremities. He does have lower extremity edema in his bilateral legs of 2+. ASSESSMENT: 1. Chronic low back pain with radiculopathy. 2. Coronary artery disease. He is on Coumadin. 3. Type 2 diabetic. 4. History of subarachnoid bleed and hematoma and cerebrovascular accident. 5. Management of opioid medications under terms of written opioid agreement. We reviewed the fact that opiate medications are being used to provide analgesia adequate to support activities of daily living, not attempting to achieve a specific pain score on the 0-10 Visual Analog Scale. The current opiate medications are providing sufficient analgesia to allow the patient to participate in activities of daily living. The patient is not exhibiting any aberrant behavior suggestive of drug diversion. The patient is not having any adverse reactions to medications. The patient is not suffering from daytime somnolence or mental acuity changes. The patient is managing opiate-induced constipation with appropriate icmi-ymx-asajyou agents and dietary considerations. The patient was counseled on concern for caution with operating a motor vehicle while using opiate medications. A physical exam was performed and the patient's functional status was evaluated. All patients with back pain were advised against the bed rest greater than 4 days and were advised to return to normal activities. Pain score assessment was [facility] [address] [place] [address] PAIN MANAGEMENT CONSULTATION Name: MONY CASTILLO Room #: REG [facility].#: [id number] Admission: 09/17/18 ������������������ Attend Phys: Danielle Kenney Discharge: ������������������ Date of : 46 Report #: [id number] noted and the treatment plan was reviewed with the patient. All current medications, both prescribed and OTC were reviewed and reconciled on the electronic medical record. Tobacco screening was accomplished and smoking cessation was advised when indicated. BMI was noted and diet/exercise modification was recommended for all patients following outside normal parameters. I reviewed with the patient today their responsibilities to safeguard prescription medications, reviewed their responsibility to utilize medications only as prescribed by the physician. They are to seek and receive pain medications only from 1 physician group ( [facility]). They are to use 1 pharmacy and keep the clinic informed if they change pharmacies. Their responsibilities include making followup visits in a timely fashion and to avoid abrupt discontinuation of medication usage. Their responsibilities further include bringing their medications (bottles from the pharmacy with residual pills) to the visit for possible confirmation of pill counts and the patient understands it is their responsibility to submit to random drug screens to ensure both that the medications prescribed are present, and that no other controlled substances are present. All prescriptions provided today were generated electronically. PLAN: 1. We discussed treatment options today. The patient feels that he is doing quite well since his methadone dose was split to 5 mg b.i.d. Scripts given for #60 for today 4-week an 8-week release as well as hydrocodone 10/325 #90 for 3 months as well. 2. According to the CDC guidelines, this places the patient at 60 morphine milligram equivalent. 3. The patient tells me he has been having difficulty sleeping, part of it he knows is his PTSD bothering him, but he has not been on his Wellbutrin for quite some time since he switched psych doctors and will be discussing this with his new doctor next month. The patient is seen with Dr. Bert Fair who collaborated care today. The patient will return in 3 months for medication refills. ��������������������������������������������� <ELECTRONICALLY SIGNED> ���������������������������������������� By: Danielle Kenney ��������������������������������������������� 09/18/18 0716 1500 [id number] Danielle Kenney /nt
== END ==
LOC: PAIN 06:59
DX: M54.16 Radiculopathy, lumbar region (principal); G89.4 Chronic pain syndrome; E11.9 Type 2 diabetes mellitus without complications; I25.10 Atherosclerotic heart disease of native coronary artery without angina pectoris; Z88.8 Allergy status to other drugs, medicaments and biological substances; Z79.899 Other long term (current) drug therapy; Z79.891 Long term (current) use of opiate analgesic

== ENCOUNTER → 2018-12-21 | Outpatient (CLI) | payer OTHER ==
[~2018-12-21] VITALS: Ht 182.9 cm; Wt 121.1 kg
[2018-12-21 13:41] VITALS: BP 121/68
--- NOTE | 2018-12-21 13:45 | NUR ---
Pain Clinic Assessment: 1. History of Osteoarthritis: BACK KNEES History of Rheumatoid Arthritis: NO 2. Height: 6 ft. 0 in. 182.9 cm. Weight: 267.0 lb. oz. 121.111 kg. Patient's BMI: 36.2 3. Vital Signs: BP: 121/68 Pulse: 72 Resp: 14 Temp: 02 Sat: 100 ECG Mon: 4. Pain Intensity: 8 5. Fall Risk: Dizziness: Y Needs help standing or walking: Y Fallen in the last 3 months: Y Fall risk comments: USES CANE, HAS FALLEN LATELY C/O FLOMAX MADE HIM DIZZY 6. Patient on Blood Thinner: Warfarin (Coumadin) 7. History of Hypertension: N 8. Opioid Therapy greater than 6 weeks: Y Opiate Contract Signed: 11/09/15 9. Risk Assessment Tool Provided: 3-LOW RISK 10. Functional Assessment Tool: 11. Recreational Drug Use: Never Drug Type: Tobacco Use: Former Smoker Tobacco Type: Amount or Packs/day: How Many Years: Alcohol Use: No Frequency: Quant:
--- NOTE | 2018-12-22 15:32 | HPC ---
[facility] [place] [address] PAIN MANAGEMENT CONSULTATION Name: MONY CASTILLO Room #: REG [facility] M.R.#: [id number] Admission: 12/21/18 Attend Phys: Danielle Kennye Discharge: Date of : 46 Report #: [id number] THIS REPORT FOR: //name// CC: Danielle Early DO DATE OF SERVICE: 12/21/2018 CHIEF COMPLAINT: Chronic intractable low back pain with radiculopathy. HISTORY OF PRESENT ILLNESS: This is a 68-year-old gentleman who returns to the pain clinic today for refill of his medications. He reports that he is doing quite well with the treatment options that we are providing him, rating his pain score at 8/10. He reports that most of his pain is located in his lower back and bilateral knees and is a throbbing, numb, sharp pain that is worse with standing, walking or lifting, but his medications as well as stretching are very beneficial in controlling his pain. Today, he is questioning if his primary care doctor could write for these medications because he is finding it more difficult to travel down here from [place] every 3 months for his medications. ALLERGIES: LATUDA, MELOXICAM and OXYCODONE. CURRENT LIST OF MEDICATIONS: Methadone 5 mg b.i.d., hydrocodone 10/325 t.i.d. p.r.n., Coumadin 2.5 mg to 5 mg, glipizide ER 2.5 mg daily, Depakote ER 50 mg at bedtime, Glucophage 50 mg b.i.d., vitamin D, Lamictal 100 mg daily, potassium 40 mEq daily, Coreg 6.25 mg daily, lisinopril 2.5 mg daily, atorvastatin 80 mg daily, Prilosec 20 mg b.i.d. and Lasix 80 mg daily. PQRS: 1. He has arthritic changes in his spine and knees. Denies any rheumatoid arthritis. 2. Height is 6 feet, weight is 267, BMI is 36. 3. Vital signs 121/68, pulse is 72, respirations 14, oxygen sat is 100. 4. Pain score is 8/10. 5. Complains of dizziness, does need help walking, uses a walker or cane. 6. Has fallen in the last 3 months. He relates that to a medication that he is no longer taking, Flomax. 7. The patient is on Coumadin and he does take medicines for hypertension. 8. Opioid therapy is greater than 6 weeks; therefore, an opioid signed contract is on the chart. Risk assessment tool is low. Functional assessment is 52/70. 9. Recreational drug use, he denies. He is a former smoker and does not drink alcohol. According to the prescription monitoring system, the patient is filling appropriately. We did check a recent drug screen [place] [address] PAIN MANAGEMENT CONSULTATION Name: MONY CASTILLO Room #: REG [facility] Arreola#: [id number] Admission: 12/21/18 Attend Phys: Danielle Kenney Discharge: Date of : 46 Report #: [id number] PHYSICAL EXAMINATION: GENERAL: This is a 68-year-old gentleman who appears his stated age. He is pleasant and alert. He does have a flat affect, rating his pain score at 8/10 today. HEENT: Mucous membranes moist. Pupils are reactive to light. MUSCULOSKELETAL: He moves independently, though slow from a seated position to standing position and uses a cane at all times. His gait is antalgic. Has lower extremity weakness due to deconditioning. He has tenderness across his lower back. ASSESSMENT: 1. Chronic low back pain with radiculopathy. 2. Coronary artery disease. He is on Coumadin therapy. 3. Type 2 diabetic. 4. History of subarachnoid bleed and hematoma from a cerebrovascular accident. 5. Management of high-risk medications under terms of written opioid agreement. We reviewed the fact that opiate medications are being used to provide analgesia adequate to support activities of daily living, not attempting to achieve a specific pain score on the 0-10 Visual Analog Scale. The current opiate medications are providing sufficient analgesia to allow the patient to participate in activities of daily living. The patient is not exhibiting any aberrant behavior suggestive of drug diversion. The patient is not having any adverse reactions to medications. The patient is not suffering from daytime somnolence or mental acuity changes. The patient is managing opiate-induced constipation with appropriate jnvs-ylw-mbywfao agents and dietary considerations. The patient was counseled on concern for caution with operating a motor vehicle while using opiate medications. A physical exam was performed and the patient's functional status was evaluated. All patients with back pain were advised against the bed rest greater than 4 days and were advised to return to normal activities. Pain score assessment was noted and the treatment plan was reviewed with the patient. All current medications, both prescribed and OTC were reviewed and reconciled on the electronic medical record. Tobacco screening was accomplished and smoking cessation was advised when indicated. BMI was noted and diet/exercise modification was recommended for all patients following outside normal parameters. I reviewed with the patient today their responsibilities to safeguard prescription medications, reviewed their responsibility to utilize medications only as prescribed by the physician. They are to seek and receive pain medications only from 1 physician group ( [facility]). They are to use 1 pharmacy and keep the clinic informed if they change pharmacies. Their responsibilities include making followup visits in a timely fashion and to avoid [facility] [address] [place] [address] PAIN MANAGEMENT CONSULTATION Name: MONY CASTILLO Room #: REG [facility].R.#: [id number] Admission: 12/21/18 Attend Phys: Danielle Kenney Discharge: Date of : 46 Report #: [id number] abrupt discontinuation of medication usage. Their responsibilities further include bringing their medications (bottles from the pharmacy with residual pills) to the visit for possible confirmation of pill counts and the patient understands it is their responsibility to submit to random drug screens to ensure both that the medications prescribed are present, and that no other controlled substances are present. All prescriptions provided today were generated electronically. PLAN: 1. We discussed treatment options with the patient today. He is doing very well on this current regimen. He has been stable on this dose for a significant amount of time. We will refill his methadone 5 mg b.i.d., #60, for today for an 8-week as well as his hydrocodone 10/325 t.i.d., 90 for today 4 and 8-week. This does place the patient at 60 morphine mEq according to the CDC guidelines. 2. The patient and wondered if they could have their primary care office, Dr. Jie Early, write for these medications since it is a hardship for the patient to travel this distance. I explained to him that will be up to Dr. Early. He has been stable on this dose for a significant amount of time. He is on a low dose and we would be happy to have her write for these medications, as it will be easier for him. The family will ask the doctor at their next appointment. The patient sees us on 3-month time period. If Dr. 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 3. The patient denies any problems with constipation or daytime sleepiness from these medications. Dr. Bert Fair did see the patient as well today and collaborated care. The patient will follow up as needed with us or Dr. Jie Early. <ELECTRONICALLY SIGNED> By: Danielle Kenney 12/22/18 1532 [id number] Danielle Kenney /nt
== END ==
LOC: PAIN 07:10
DX: M54.16 Radiculopathy, lumbar region (principal); G89.29 Other chronic pain; I25.10 Atherosclerotic heart disease of native coronary artery without angina pectoris; E11.9 Type 2 diabetes mellitus without complications; Z86.72 Personal history of thrombophlebitis; Z79.891 Long term (current) use of opiate analgesic; Z88.8 Allergy status to other drugs, medicaments and biological substances; Z79.899 Other long term (current) drug therapy

== ENCOUNTER → 2019-03-25 | Outpatient (CLI) | payer OTHER ==
[~2019-03-25] VITALS: Ht 188 cm; Wt 116.5 kg
[2019-03-25 12:41] VITALS: BP 124/71
--- NOTE | 2019-03-25 12:52 | NUR ---
Pain Clinic Assessment: 1. History of Osteoarthritis: BACK KNEES History of Rheumatoid Arthritis: NO 2. Height: 6 ft. 2 in. 188.0 cm. Weight: 256.8 lb. oz. 116.484 kg. Patient's BMI: 33.0 3. Vital Signs: BP: 124/71 Pulse: 92 Resp: 18 Temp: 02 Sat: 98 ECG Mon: 4. Pain Intensity: 8 5. Fall Risk: Dizziness: N Needs help standing or walking: Y Fallen in the last 3 months: Y Fall risk comments: USES CANE, HAS FALLEN LATELY C/O FLOMAX MADE HIM DIZZY 6. Patient on Blood Thinner: Warfarin (Coumadin) 7. History of Hypertension: N 8. Opioid Therapy greater than 6 weeks: Y Opiate Contract Signed: 11/09/15 9. Risk Assessment Tool Provided: 3-LOW RISK 10. Functional Assessment Tool: 11. Recreational Drug Use: Never Drug Type: Tobacco Use: Former Smoker Tobacco Type: Amount or Packs/day: How Many Years: Alcohol Use: No Frequency: Quant:
--- NOTE | 2019-03-29 12:51 | HPC ---
[facility] [address] [place] [address] PAIN MANAGEMENT CONSULTATION Name: MONY CASTILLO Room #: REG [facility] Jonnathan.#: [id number] Admission: 03/25/19 Attend Phys: Danielle Kenney Discharge: Date of : 46 Report #: [id number] THIS REPORT FOR: cc: DELMER BROWN Rene P. MD Hocker, Amanda CNS ~ THIS REPORT FOR: //name// DATE OF SERVICE: 03/25/2019 CHIEF COMPLAINT: Chronic intractable low back pain with radiculopathy. HISTORY OF PRESENT ILLNESS: This is a 68-year-old gentleman who returned to the pain clinic today for refill of his medications that he uses to help treat his ongoing low back pain and bilateral knee pain and leg pain. He has had previous back surgeries, though he continues to suffer ongoing pain. He is reporting as pain score 8/10 today, which includes weakness and numbness and sharp, throbbing pain. He believes it is worse when he is walking and standing. He feels that his medications are beneficial as well as rest. He is requesting to see if he may stop his methadone and just take hydrocodone. He believes that he may get more benefit from taking just the hydrocodone. He denies any problems with constipation. His sleep schedule is quite erratic. He does not believe that the medications make him overly sleepy. The patient tells me he does have some problems with his balance. If he turns too quickly he has fallen, which he did prior to coming here today. The firemen have had to come and help him up. He has not suffered any injury from this latest fall. He does not believe it has to do with his back and does not want to try physical therapy to have them aid in working with his balance. ALLERGIES: LATUDA, MELOXICAM and OXYCODONE. CURRENT LIST OF MEDICATIONS: Methadone 5 mg b.i.d., hydrocodone 10/325 t.i.d., Coumadin, glipizide ER, Depakote, Glucophage, vitamin D, Lamictal, potassium, Coreg, Zestril, atorvastatin, Prilosec, and Lasix. PQRS: 1. He has osteoarthritis in his spine and bilateral knees. Denies any rheumatoid arthritis. 2. Height is 6 feet 2 inches, weight is 256, BMI is 33. 3. Vital signs 124/71, pulse is 92, respirations 18, oxygen sat is 98. 4. Pain score is 8/10. 5. Complains of dizziness, does need help walking, is using a cane. He has fallen in the last 3 months including today. 6. He is on Coumadin therapy and does take medicine for hypertension. [facility] [address] [place] [address] PAIN MANAGEMENT CONSULTATION Name: MONY CASTILLO Room #: REG [facility] Elba#: [id number] Admission: 03/25/19 Attend Phys: Danielle Kenney Discharge: Date of : 46 Report #: [id number] 7. Opiate therapy is greater than 6 weeks; therefore, an opioid signed contract is on the chart. Risk assessment tool is low. Functional assessment is 52/70. 8. Recreational drug use, he denies. He is a former smoker and does not drink alcohol. The patient is filling appropriately according to the prescription monitoring system and we did call his pharmacy as well. There is a recent drug screen on the chart that is appropriate for his medicines. PHYSICAL EXAMINATION: GENERAL: This is a 68-year-old gentleman who appears his stated age. He is alert. He has a flat affect, rating his pain score today at 8/10. HEENT: His mucous membranes are dry. Pupils equal, reactive to light. MUSCULOSKELETAL: He moves independently, though slowly from a seated position to standing position using the armrest to aid in standing. He has a slow antalgic gait, uses a cane. He has lower extremity edema 2-3+ with compression stockings on his lower extremities, are deconditioned. He has tenderness in his lumbar spine that radiates down his legs. ASSESSMENT: 1. Chronic low back pain with radiculopathy. 2. Coronary artery disease, on Coumadin therapy. 3. Type 2 diabetic. 4. History of subarachnoid bleed and hematoma from a cerebrovascular accident. 5. Management of high risk medications under terms of written opioid agreement. We reviewed the fact that opiate medications are being used to provide analgesia adequate to support activities of daily living, not attempting to achieve a specific pain score on the 0-10 Visual Analog Scale. The current opiate medications are providing sufficient analgesia to allow the patient to participate in activities of daily living. The patient is not exhibiting any aberrant behavior suggestive of drug diversion. The patient is not having any adverse reactions to medications. The patient is not suffering from daytime somnolence or mental acuity changes. The patient is managing opiate-induced constipation with appropriate wqtj-qbe-pxrhzil agents and dietary considerations. The patient was counseled on concern for caution with operating a motor vehicle while using opiate medications. PLAN: 1. We discussed the patient's care options with him today. He is requesting to go off his methadone. I explained to him how methadone works in the MDA receptors, which helps with neuropathic pain, which he is experiencing in his legs. Also, due to the fact that he is a diabetic, Dr. Bert Fair came and spoke with the patient as well today. We encouraged him to remain on the methadone. We believe this is beneficial for him. I encouraged him to take 1 tablet twice a day to see if he gets better coverage instead of taking them two [facility] [address] [place] [address] PAIN MANAGEMENT CONSULTATION Name: ANNAMONY QAMAR Room #: REG [facility] Elba#: [id number] Admission: 03/25/19 Attend Phys: Danielle Kenney Discharge: Date of : 46 Report #: [id number] at the same time. 2. We will renew and refill his methadone 5 mg b.i.d. for today, 4-week and 8-week as well as his hydrocodone 10/325, #90 for 3 months. According to the CDC guidelines, this places him at 60 morphine mEq. 3. We did discuss his balance issues and offered him physical therapy. At this time, he is declining physical therapy. He will try to work on slowly turning to see if this aids in not falling instead of turning too quickly. 4. The patient will return in 3 months or as needed. <ELECTRONICALLY SIGNED> By: Danielle Kenney 03/29/19 1251 [id number] Danielle Kenney /nt
== END ==
LOC: PAIN 03-15 07:03
DX: M54.16 Radiculopathy, lumbar region (principal); I25.10 Atherosclerotic heart disease of native coronary artery without angina pectoris; E11.9 Type 2 diabetes mellitus without complications; Z79.891 Long term (current) use of opiate analgesic

== ENCOUNTER → 2019-06-21 | Outpatient (CLI) | payer OTHER ==
[~2019-06-21] VITALS: Ht 188 cm; Wt 115.2 kg
[2019-06-21 12:30] VITALS: BP 119/70
--- NOTE | 2019-06-21 12:41 | NUR ---
Pain Clinic Assessment: 1. History of Osteoarthritis: BACK KNEES History of Rheumatoid Arthritis: NO 2. Height: ft. in. cm. Weight: lb. oz. kg. Patient's BMI: 3. Vital Signs: BP: Pulse: Resp: Temp: 02 Sat: ECG Mon: 4. Pain Intensity: 8 5. Fall Risk: Dizziness: Y Needs help standing or walking: Y Fallen in the last 3 months: Y Fall risk comments: USES CANE, HAS FALLEN LATELY C/O FLOMAX MADE HIM DIZZY 6. Patient on Blood Thinner: Warfarin (Coumadin) 7. History of Hypertension: N 8. Opioid Therapy greater than 6 weeks: Y Opiate Contract Signed: 11/09/15 9. Risk Assessment Tool Provided: 3-LOW RISK 10. Functional Assessment Tool: 11. Recreational Drug Use: Never Drug Type: Tobacco Use: Former Smoker Tobacco Type: Cigarettes Amount or Packs/day: 1 PACK How Many Years: 45 Alcohol Use: No Frequency: Quant:
--- NOTE | 2019-06-23 12:41 | HPC ---
[facility] [address] [address] PAIN MANAGEMENT CONSULTATION Name: MONY CASTILLO Room #: REG [facility] De Santiago.#: [id number] Admission: 06/21/19 Attend Phys: Danielle Kenney Discharge: Date of : 46 Report #: [id number] THIS REPORT FOR: cc: DELMER BROWN Rene P. MD Hocker, Amanda CNS ~ CC: Bert Fair MD DATE OF SERVICE: 06/21/2019 CHIEF COMPLAINT: Chronic intractable low back pain with radiculopathy. HISTORY OF PRESENT ILLNESS: This is a 68-year-old gentleman who is here present today with his for a refill of his opioid medications that he uses to help treat his ongoing low back pain. Today, he is reporting a pain score of 7-8/10 most significantly in his lower back that radiates down his right leg. He also is complaining of some left knee pain. He is reporting a pain score of 8/10 today, it is numbness, throbbing pain that is occasionally sharp. He does report also some weakness in his lower extremities. He has fallen recently, which he has in the past. He has not injured himself, though he does require the assistance of the emergency medical team to come and help him stand up. He states sitting in the recliner as well as medications are very beneficial in decreasing his overall pain. ALLERGIES: LATUDA, MELOXICAM, OXYCODONE. CURRENT LIST OF MEDICATIONS: Methadone 5 mg b.i.d., hydrocodone 10/325 p.r.n., Coumadin, glipizide, Depakote, metformin, vitamin D, Lamictal, potassium, Coreg, Zestril, atorvastatin, omeprazole, and Lasix. PQRS: 1. He has a history of osteoarthritis in his back as well as bilateral knees. He denies any rheumatoid arthritis. 2. Height is 6 feet 2 inches. Weight is 254. 3. Vital signs 119/70, pulse is 93, respirations 18, oxygen sat is 97%. 4. Pain score is 7-8. 5. Does complain of slight dizziness. Uses a walker at all times and has fallen in the last 3 months. 6. The patient is on Coumadin as well as medicines for hypertension. 7. Opioid therapy is greater than 6 weeks; therefore, an opioid signed contract is on the chart. His risk assessment tool is low. Functional assessment is 52/70. 8. Recreational drug use, he denies. He is a former smoker and does not drink alcohol currently. According to the prescription monitoring system, the patient is filling [address] [address] PAIN MANAGEMENT CONSULTATION Name: MONY CASTILLO [id number] Admission: 06/21/19 Attend Phys: Danielle Kenney Discharge: Date of : 46 Report #: [id number] appropriately. We will check a random urine drug screen today and has been greater than one year since his last screen: PHYSICAL EXAMINATION: GENERAL: This is alert and orientated 68-year-old gentleman who appears his stated age, placing his current pain score an 8/10. He does have a flat affect. HEENT: Mucous membranes are moist. Pupils equal, round and reactive to light. MUSCULOSKELETAL: He has a slow antalgic gait using a walker today. His lower extremity edema is present at 2+. He was wearing compression stockings as well. He is deconditioned bilaterally in his upper and lower extremities. He has tenderness in his lumbar spine that radiates down his right leg to the posterior leg to his ankle. IMPRESSION: 1. Chronic low back pain with radiculopathy. 2. Coronary artery disease, on Coumadin therapy. 3. Type 2 diabetic. 4. History of subarachnoid bleed and hematoma with cerebrovascular accident. 5. Management of high risk medications under terms of written opioid agreement. We reviewed the fact that opiate medications are being used to provide analgesia adequate to support activities of daily living, not attempting to achieve a specific pain score on the 0-10 Visual Analog Scale. The current opiate medications are providing sufficient analgesia to allow the patient to participate in activities of daily living. The patient is not exhibiting any aberrant behavior suggestive of drug diversion. The patient is not having any adverse reactions to medications. The patient is not suffering from daytime somnolence or mental acuity changes. The patient is managing opiate-induced constipation with appropriate qpei-oya-suqlmdx agents and dietary considerations. The patient was counseled on concern for caution with operating a motor vehicle while using opiate medications. A physical exam was performed and the patient's functional status was evaluated. All patients with back pain were advised against the bed rest greater than 4 days and were advised to return to normal activities. Pain score assessment was noted and the treatment plan was reviewed with the patient. All current medications, both prescribed and OTC were reviewed and reconciled on the electronic medical record. Tobacco screening was accomplished and smoking cessation was advised when indicated. BMI was noted and diet/exercise modification was recommended for all patients following outside normal parameters. I reviewed with the patient today their responsibilities to safeguard prescription medications, reviewed their responsibility to utilize medications only as prescribed by the physician. They are to seek and receive pain medications only from 1 physician group ([facility]). They are to use [address] [address] PAIN MANAGEMENT CONSULTATION Name: MONY CASTILLO [facility] #: [facility] [id number] Admission: 06/21/19 Attend Phys: Danielle Kenney Discharge: Date of : 46 Report #: [id number] pharmacy and keep the clinic informed if they change pharmacies. Their responsibilities include making followup visits in a timely fashion and to avoid abrupt discontinuation of medication usage. Their responsibilities further include bringing their medications (bottles from the pharmacy with residual pills) to the visit for possible confirmation of pill counts and the patient understands it is their responsibility to submit to random drug screens to ensure both that the medications prescribed are present, and that no other controlled substances are present. All prescriptions provided today were generated electronically. PLAN: 1. We discussed treatment options with the patient today and his family. Encouraged him to get up slowly out of a chair, he has fallen again recently as of yesterday, his blood pressure is 119/70 which is actually fairly high for him today. I encouraged him to stand, wait a period of time and then start walking to hopefully help reduce his orthostatic hypotension and his falls. 2. We will have Dr. Bert Fair send electronically his methadone 5 mg b.i.d. #60 to his pharmacy as well as his hydrocodone 10/325, #90 for today, 4-week and 8 week supplies. 3. The patient is seen in collaboration with Dr. Bert Fair who did see the patient as well today. <ELECTRONICALLY SIGNED> By: Danielle Kenney 06/23/19 1241 [id number] Danielle Kenney /nt
== END ==
LOC: PAIN 06:58
DX: M54.5 Low back pain (principal); M54.10 Radiculopathy, site unspecified; I25.10 Atherosclerotic heart disease of native coronary artery without angina pectoris; E11.9 Type 2 diabetes mellitus without complications; F11.20 Opioid dependence, uncomplicated; Z86.69 Personal history of other diseases of the nervous system and sense organs; Z88.5 Allergy status to narcotic agent; Z88.8 Allergy status to other drugs, medicaments and biological substances; Z79.899 Other long term (current) drug therapy

== ENCOUNTER → 2019-09-23 | Outpatient (CLI) | payer OTHER ==
[~2019-09-23] MED LIST changes: +ASA81BEC PO; +LASIX 40 MG TAB40 MG PO; +PLAVIX 75 MG TA75 MG PO; +SPIRONOLACTONE25 MG PO
--- NOTE | 2019-09-23 11:33 | HPC ---
[facility] [address] [place] [address] PAIN MANAGEMENT CONSULTATION Name: MONY CASTILLO Room #: REG [facility] Jonnathan.#: [id number] Admission: 09/23/19 Attend Phys: Danielle Kenney Discharge: Date of : 46 Report #: [id number] THIS REPORT FOR: cc: Edenilson Nathan MD, Rene P. MD Hocker, Amanda CNS ~ CC: Bert Fair MD DATE OF SERVICE: 09/23/2019 This is a telemedicine appointment from 9:40-10:00 due to the patient's recent hospitalization and at home through this COVID outbreak that he has consented to. CHIEF COMPLAINT: Chronic intractable low back pain with radiculopathy. HISTORY OF PRESENT ILLNESS: In speaking with this patient via the telephone for a telemedicine appointment, he was recently hospitalized at [facility] with congestive heart failure. Per his report he went into cardiac arrest upon entering the hospital via ambulance and was placed on a ventilator in ICU. According to the , he required cardiac catheterization with stents. They are now going to consider placing a Watchman in the next few weeks at [facility]. Currently, he is getting physical therapy at home 4 times a week. She reports he is unable to walk. He is in his wheelchair, though he does do his exercises on a regular basis. The patient reports to me today his pain score is a 9/10, most significantly in his back and right hip, though he is having right elbow pain as well. He fell prior to this hospitalization and they are unsure if he chipped a bone in his right elbow. He is not wearing a sling, it does cause significant pain when he moves it. They report that he is in a wheelchair most of the time. He does take several people to help move him. They do live in a 1-story house, but it is very difficult for him to leave the house for cardiac doctors' appointments in his wheelchair. Two family members come and assist her. The patient reports he is working very hard with therapy. He is hopeful to build his strength to continue walking again as he had in the past. Today, they are needing refills of his hydrocodone and methadone. He denies constipation issues. ALLERGIES: LATUDA, MELOXICAM, AND OXYCODONE. CURRENT LIST OF MEDICATIONS: Plavix, atorvastatin, carvedilol, lisinopril, spironolactone, aspirin, hydrocodone, Depakote, Lamictal, potassium, Lasix, Prilosec, Glucophage, glipizide, and vitamin D. PQRS: He has a history of osteoarthritis in his back and [place] [address] PAIN MANAGEMENT CONSULTATION Name: MONY CASTILLO Room #: REG CARIDAD Arreola#: [id number] Admission: 09/23/19 Attend Phys: Danielle Kenney Discharge: Date of : 46 Report #: [id number] rheumatoid arthritis. Height, weight and vital signs were deferred due to a Telemed appointment. Pain score is at 9/10. Does complain of slight dizziness. He is in a wheelchair currently and has a walker at home as well. The patient is now on Plavix and also takes medicine for hypertension. His opioid therapy is greater than 6 weeks; therefore, an opioid signed contract is on the chart. His risk assessment tool is low. Functional assessment is 52/70. Recreational drug use, he denies. He is a former smoker and does not drink alcohol. According to the prescription monitoring system, he is past due to fill for his medication due to his hospitalization. He does fill appropriately. His morphine milliequivalent according to the CDC guidelines is 70 MME. He does have a recent drug screen on the chart that is appropriate as well. PHYSICAL EXAMINATION: As a review of systems, this is alert and orientated 68-year-old gentleman who is answering my questions appropriately on the phone. He states that he is not walking currently. He does have a wheelchair that he is using. Moves to this bed or chair with a walker with much assistance. He has significant swelling in his lower extremities per his report and does wear compression stockings. Pain is located in his lower back that radiates down his right hip into his leg. He also has pain in his right elbow per his report with movement. IMPRESSION: 1. Chronic low back pain with radiculopathy. 2. Coronary artery disease with recent stents, on Plavix. 3. Congestive heart failure. 4. Type 2 diabetic. 5. History of subarachnoid bleed and hematoma with cerebrovascular accident. 6. Management of high risk medications under terms of written agreement. We reviewed the fact that opiate medications are being used to provide analgesia adequate to support activities of daily living, not attempting to achieve a specific pain score on the 0-10 Visual Analog Scale. The current opiate medications are providing sufficient analgesia to allow the patient to participate in activities of daily living. The patient is not exhibiting any aberrant behavior suggestive of drug diversion. The patient is not having any adverse reactions to medications. The patient is not suffering from daytime somnolence or mental acuity changes. The patient is managing opiate-induced constipation with appropriate uxto-ukn-xnfhijw agents and dietary considerations. The patient was counseled on concern for caution with operating a motor vehicle while using opiate medications. PLAN: 1. We discussed treatment options with the patient and his today. We will continue his methadone 5 mg b.i.d. and his hydrocodone 10/325 three times a day. Scripts will be sent electronically by Dr. Bert Fair for today for an [facility] [address] [place] [address] PAIN MANAGEMENT CONSULTATION Name: ANNAMONYKAILA FOOTE Room #: REG Orin Arreola#: [id number] Admission: 09/23/19 Attend Phys: Danielle Kenney Discharge: Date of : 46 Report #: [id number] 8-week release. I believe that having the patient come in 3 months will allow him to finish his physical therapy and hopefully have him walking. He was utilizing therapy prior to his last fall to help with his deconditioned status. 2. Case discussed with Dr. Bert Fair who collaborated care today for this Telemed appointment. <ELECTRONICALLY SIGNED> By: Danielle Kenney 09/23/19 [id number] Danielle Kenney /nt
== END ==
LOC: PAIN 09-16 10:23 → TELEPC 09:37
PROVIDERS: ATTEND Clinical Nurse Specialist Adult Health
DX: M54.16 Radiculopathy, lumbar region (principal); G89.29 Other chronic pain; I25.10 Atherosclerotic heart disease of native coronary artery without angina pectoris; I50.9 Heart failure, unspecified; E11.9 Type 2 diabetes mellitus without complications; Z88.8 Allergy status to other drugs, medicaments and biological substances; Z79.899 Other long term (current) drug therapy; Z79.891 Long term (current) use of opiate analgesic; Z95.5 Presence of coronary angioplasty implant and graft

== ENCOUNTER → 2019-12-20 | Outpatient (CLI) | payer OTHER ==
--- NOTE | 2019-12-21 13:49 | HPC ---
[facility] [address] [place] [address] PAIN MANAGEMENT CONSULTATION Name: MONY CASTILLO Room #: REG CARIDAD Elba#: [id number] Admission: 12/20/19 Attend Phys: Danielle Kenney Discharge: Date of : 46 Report #: [id number] CC: Danielle Fair MD DATE OF SERVICE: 12/20/2019 This is a telemedicine appointment from [id number] due to the patient's recent hospitalization that he has consented for. CHIEF COMPLAINT: Chronic intractable low back pain with radiculopathy. HISTORY OF PRESENT ILLNESS: I am speaking with the patient via the telephone today for a Telemed appointment due to his recent hospitalization and inability to come to the clinic. He is getting ready to go to a residential facility for rehabilitation per his 's report at least 3 weeks. He is needing his pain medications prior to going into the facility. 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 The patient reports today that his pain is a 7-8 mostly located in his lumbar spine that does radiate down his right leg. He has been hospitalized at least once since his last visit with us. He had an IVC filter placed about 3 weeks ago at [facility] in [place] then he has been at home, but it has been difficult for him to move and transfer. His has been having to help lift him most of the time. He is a quite large gentleman compared to his and that has been very difficult on both of them, so therefore he is going to rehab to try and strengthen his legs as at this moment he reports he is unable to walk. The patient denies any problems with constipation or daytime somnolence as a result of his medications. ALLERGIES: LATUDA, MELOXICAM AND OXYCODONE. CURRENT LIST OF MEDICATIONS: Spironolactone, aspirin, Plavix, omeprazole, atorvastatin, lisinopril, Lamictal, vitamin D, metformin, Depakote, glipizide, Lasix, potassium, hydrocodone 10/325 t.i.d., methadone 5 mg b.i.d. PATIENT'S PQRS: 1. He has a history of osteoarthritis in his back and knees. Denies any rheumatoid arthritis. 2. Height, weight and vital signs are deferred due to a Telemed appointment, his pain is a 7/10. Does complain of slight dizziness. He reports no falls, but he is in a wheelchair at home. He is currently on Plavix as well as medications for hypertension. His opioid therapy is greater than 6 weeks; therefore, an opioid signed contract is on the chart. Risk assessment is low. Functional assessment is 52/70. 3. Recreational drug use, he denies. He is a former smoker and does not drink alcohol. According to the prescription monitoring system, he is filling appropriately in a timely fashion. According to the CDC guidelines, his morphine mEq is 70. This is a review of systems since it is a Telemed appointment. This is a 69-year-old gentleman who is answering my questions appropriately via the telephone today. He reports he is currently not walking, does pivot with the aid of his for movement. Complains of significant low back pain that radiates in his right leg. He uses a wheelchair most all times. He reports deconditioned in his lower extremities and he is wearing compression stockings. IMPRESSION: 1. Chronic low back pain with radiculopathy. 2. Coronary artery disease with recent stents and inferior vena cava filter, on Plavix. 3. Congestive heart failure. 4. Type 2 diabetes. 5. History of subarachnoid bleed with hematoma and cerebrovascular accident. 6. Management of high risk medications under terms of written opioid agreement. We reviewed the fact that opiate medications are being used to provide analgesia adequate to support activities of daily living, not attempting to achieve a specific pain score on the 0-10 Visual Analog Scale. The current opiate medications are providing sufficient analgesia to allow the patient to participate in activities of daily living. The patient is not exhibiting any aberrant behavior suggestive of drug diversion. The patient is not having any adverse reactions to medications. The patient is not suffering from daytime somnolence or mental acuity changes. The patient is managing opiate-induced constipation with appropriate gdcx-exg-sdeykgm agents and dietary considerations. The patient was counseled on concern for caution with operating a motor vehicle while using opiate medications. PLAN: 1. We discussed treatment options with the patient and today, we will continue him on his methadone 5 mg b.i.d. and hydrocodone 10/325. His will take written prescriptions to the long-term care unit today since the rehab doctors are unwilling to write for his opioid medications. She has had to drive from [place] to pick these up today prior to taking him to rehabilitation. 2. The patient's was given his 4 and 8-week scripts as well in case he is in the facility longer, she will deliver those in the next month or to their local pharmacy to fill if he is at home at that time. 3. The patient is seen in collaboration with Dr. Bert Fair. Hopefully, the patient will be able to come to an appointment in February. <ELECTRONICALLY SIGNED> By: Danielle Kenney 12/21/19 [id number] Danielle Kenney /nt
== END ==
LOC: PAIN 11-22 07:44 → TELEPC 06:51 → PAIN 06:51
PROVIDERS: ATTEND Clinical Nurse Specialist Adult Health
DX: M54.16 Radiculopathy, lumbar region (principal); G89.29 Other chronic pain; I25.10 Atherosclerotic heart disease of native coronary artery without angina pectoris; I50.9 Heart failure, unspecified; F11.20 Opioid dependence, uncomplicated; Z86.73 Personal history of transient ischemic attack (TIA), and cerebral infarction without residual deficits; Z79.899 Other long term (current) drug therapy